=== PATIENT | male | born 1990 | race Caucasian/White ===

== ENCOUNTER 2019-05-29 23:54 | Emergency (ER) | payer BC, OTHER ==
[~2019-05-29] VITALS: Ht 162.6 cm; Wt 65.5 kg
[~2019-05-29 23:54] MED LIST: CLIN300C10 PO; EMTR1TAB11 PO; INSU100C SQ; INSU100C SUBDERMAL; PANT40TA4 PO
[2019-05-30 00:50] VITALS: Ht 162.6 cm; Wt 65.5 kg
[2019-05-30] MEDS ORDERED: CLINDAMYCIN 300 MG INJ IM ONE (03:00)
[2019-05-30] MEDS ORDERED: CLINDAMYCIN 600 MG INJ IM ONE (03:00)
[2019-05-30 04:04] VITALS: BP 139/85; PULSE 80; RESP 20
== END 2019-05-30 04:05 | disposition home or self-care (01) ==
LOC: FTE 23:54
DX: L02.414 Cutaneous abscess of left upper limb (principal); B95.62 Methicillin resistant Staphylococcus aureus infection as the cause of diseases classified elsewhere; E10.9 Type 1 diabetes mellitus without complications; Z79.4 Long term (current) use of insulin
CPT/HCPCS: 96372